=== PATIENT | female | born 1970 | race Caucasian/White ===

== ENCOUNTER 2024-11-18 05:30 | Emergency (ER) | payer BC, OTHER, SELFPAY ==
[2024-11-18 05:32] VITALS: BP 145/92
[2024-11-18 06:03] VITALS: BMI 28.1
[2024-11-18 06:13] LABS: % Basophils 0.7 % (0-2); % Eosinophils 2.4 % (0-6); % Immature Granulocytes 0.3 % (0-0.5); % Lymphocytes 29.4 % (20.5-51.1); % Monocytes 8.5 % (1.7-9.3); % Neutrophils 58.7 % (42.2-75.2); Absolute Eosinophils 0.1 10^3/uL (0-0.7); Absolute Lymphocytes 1.7 10^3/uL (1.2-3.4); Absolute Monocytes 0.5 10^3/uL (0.1-0.6); Absolute Neutrophils 3.4 10^3/uL (1.4-6.5); Hematocrit 37.9 % (37.0-47.0); Hemoglobin 13.1 g/dL (12.0-16.0); Mean Corp Hgb Conc. 34.6 g/dL (33.0-37.0); Mean Corpuscular Hgb 31.3 pg (27.0-31.0); Mean Corpuscular Volume 90.5 fL (81.0-99.0); Mean Platelet Volume 10.8 fL (7.4-10.4); Nucleated Red Blood Cells % 0 %; Platelet Count 238 10^3/uL (130-400); Red Blood Cell Count 4.19 10^6/uL (4.20-5.40); White Blood Cell Count 5.9 10^3/uL (4.8-10.8)
[2024-11-18 06:26] LABS: ALT (SGPT) 11 U/L (0-35); AST (SGOT) 16 U/L (14-36); Albumin 3.9 g/dl (3.5-5.0); Alkaline Phosphatase 53 U/L (38-126); Blood Urea Nitrogen 9 mg/dl (7-17); Calcium 9.3 mg/dl (8.4-10.2); Carbon Dioxide 24 mmol/L (22-30); Chloride 109 mmol/L (98-107); Estimated Creatinine Clearance 123 ml/min; Glucose 96 mg/dl (70-99); Potassium 3.8 mmol/L (3.5-5.1); Sodium 140 mmol/L (135-145); Total Bilirubin 0.4 mg/dl (0.2-1.3); eGFR > 60.00
--- NOTE | 2024-11-18 07:13 | ED.GENMED ---
History of Present Illness
General
Chief Complaint: Dental Problem
Source: patient
Exam Limitations: none
Time Seen by Provider: 11/18/24 06:57
Nursing documentation reviewed up to this point in time: agreed with
History of Present Illness
History of Present Illness:
54-year-old female presents with left lower jaw pain had vertigo recently, saw her PCP referred to see ENT saw her dentist had a dental extraction since then has had some dizziness pain in her jaw despite Motrin and Tylenol no fever she has had
halitosis, trouble sleeping due to pain
Past History
Past History
ED Past Medical History: Other (TMJ dysfunction)
ED Past Surgical History: Appendectomy and Orthopedic (Right knee arthroscopy)
Social History
Tobacco: Non-smoker
Alcohol: Occasional (Rare)
Personal: Single
Living: with family
Employment: Employed
Family History
Family History: Other (Noncontributory)
Review of Systems
Review of Systems
All Other Systems: Not applicable
Constitutional: Denies fever or fatigue
EENT: Reports mouth swelling and other (Dental pain dizziness)
Cardiac: Reports no symptoms
ABD/GI: Reports no symptoms
: Reports no symptoms
Neurological: Reports dizzy
Phy Exam
Physical Exam
Physical Exam:
Physical Exam
General: 54 female looks uncomfortable
Neck: Left lower first molar mild gingiva erythema no palpable abscess no true
Heart: s1/s2 regular rate and rhythm, no murmur. equal radial pulses.
Lungs: no acute respiratory distress. clear bilaterally
Abdomen: Nontender
Neuro: alert and oriented. no focal neurological deficits
Skin: no rash
Psychiatric: well kept. interactive and cooperative
Extremities: no edema.
Sepsis
Sepsis Screening
Sepsis Assessment: Sepsis Ruled Out
Sepsis Screen
Sepsis Screen: Sepsis Ruled Out
Date: 11/18/24
Time: :
Course
Orders/Labs/Results
Orders:
Orders
11/18/24 06:04
Complete Blood Count/With Diff Urgent
Comprehensive Metabolic Panel Urgent
Blood Culture Urgent
HAILEY Source: Blood/Venous
Specimen Description:
11/18/24 07:10
0.9% Sodium Chloride 1000 ml [Nss] 1,000 ml IV BOLUS
HYDROmorphone [Dilaudid] 1 mg IV NOW STA
Ketorolac [Toradol] 30 mg IV NOW STA
Ondansetron Injectable [Zofran] 4 mg IV NOW STA
11/18/24 07:49
Ampicillin/Sulbactam 3 G [Unasyn] 3 gm 0.9% Sodium Chloride 100 ml [Nss] 100 ml IV NOW
Abnormal Lab Results
11/18/24
06:04
RBC 4.19 L 10^6/uL
(4.20-5.40)
MCH 31.3 H pg
(27.0-31.0)
MPV 10.8 H fL
(7.4-10.4)
Chloride 109 H mmol/L
(98-107)
11/18/24 06:04
11/18/24 06:04
Vital Signs
Initial and Last Documented VS:
Initial Vital Signs
Temp Pulse Resp BP Pulse Ox
98.3 F 78 20 145/92 98
11/18/24 05:32 11/18/24 05:32 11/18/24 05:32 11/18/24 05:32 11/18/24 05:32
Last Documented Vital Signs
Temp Pulse Resp BP Pulse Ox
98.3 F 78 20 138/89 99
11/18/24 05:32 11/18/24 05:32 11/18/24 05:32 11/18/24 09:00 11/18/24 09:15
Procedures
Dentalgia
Dental Block: In. Jenise. Block
Bupivacaine 0.5%/Epi Dental cartridge administered?: Yes
Tooth Number: 17
Abcess drained?: No
Pt tolerated procedure well w/ no immediate adverse effects?: Yes
MDM/Problems Addressed
Differential Diagnosis Includes:
Dry socket postop pain, no signs of deep space infection,
MDM/Problems Addressed:
Dental pain dizziness
*Critical Care Note
Total Time (30-74mins, 75-104mins- exclusive of procedures): Not Applicable
Update Note
Update Note:
9:25 AM patient looks improved encouraged to follow-up with her dentist
ED Attending Note
-
Portions of this chart may have been created with voice recognition software.� Occasional wrong word or��sound alike� substitutions may have occurred due to the inherent limitations of voice recognition software.
Discharge Plan
Departure
Patient Disposition: Home (Routine Discharge)
Date of Disposition: 11/18/24
Time of Disposition: :25
Patient with high blood pressure during this ER visit?: No
Condition: Good
Discharge Problem:
Dry tooth socket
Instructions: Dental Pain (DC)
Prescriptions:
New
chlorhexidine gluconate [Paroex Oral Rinse] 0.12 % mouthwash
15 ml mucous membrane BID Qty: 1893 0RF
oxycodone-acetaminophen [Percocet] 5-325 mg tablet
1 tab PO Q4HPRN PRN (Reason: pain) Qty: 14 0RF
ibuprofen 600 mg tablet
600 mg PO Q6H PRN (Reason: Pain) Qty: 20 0RF
penicillin V potassium 250 mg tablet
500 mg PO Q6H 10 Days Qty: 80 0RF
No Action
multivitamin [One Daily] 1 EACH tablet
1 ea PO DAILY
meclizine 25 MG tablet
25 mg PO QIDPRN PRN (Reason: dizziness) Qty: 30 0RF
prednisone 50 MG tablet
50 mg PO DAILY Qty: 4 0RF
Rx Instructions:
Take with food.
Referrals:
Elizabeth Mendoza MD [Family Provider] -
Stand Alone Forms: Return to Work
Activity Restrictions/Additional Instructions:
Call your dentist today to arrange follow-up
Rinse your mouth twice a day with Peridex prescription mouthwash
Antibiotics and pain meds as prescribed
Interventions
Interventions:
*Risk Screen - Suicide Last Done: 11/18/24 05:32
*General Assessment Last Done: 11/18/24 06:06
*Neglect/Abuse Screening Last Done: 11/18/24 05:32
*ED- Fall Risk Assessment Last Done: 11/18/24 06:06
*ED COVID-19 Vaccine History Last Done: 11/18/24 06:06
ED- Cardiac Assessment Last Done: 11/18/24 06:06
ED- Neurological Assessment Last Done: 11/18/24 06:06
ED Swallowing Screen Last Done: 11/18/24 07:30
Discharge Date and Time
Print Language: [place]
[2024-11-18] MEDS: ZOFRAN 4 MG IV (07:34)
[2024-11-18] MEDS: TORADOL 30 MG IV (07:35)
[2024-11-18] MEDS: DILAUDID 1 MG IV (07:38)
[2024-11-18] MEDS: NSS 1000 IV (07:41)
[2024-11-18 07:47] VITALS: BP 119/87
[2024-11-18 08:00] VITALS: BP 132/82
[2024-11-18] MEDS: UNASYN IV (08:27)
[2024-11-18 09:00] VITALS: BP 138/89
[2024-11-18 10:00] VITALS: BP 124/85
[2024-11-18] MEDS: PERCOCET 5/325 1 TABLET PO (10:20)
== END 2024-11-18 09:50 | disposition home or self-care (01) ==
LOC: EMR 05:30
PROVIDERS: EMERGENCY PHYSICIAN Emergency Medicine; FAMILY PHYSICIAN Hospitalist
DX: M27.3 Alveolitis of jaws (principal); K08.89 Other specified disorders of teeth and supporting structures; Z90.49 Acquired absence of other specified parts of digestive tract
CPT/HCPCS: 64400; 96365; 96375; 96361; 99284; 80053; 85025; 87040

== ENCOUNTER → 2025-04-01 17:28 | Outpatient (REF) | payer BC, OTHER, SELFPAY | LOC: WDC 17:28 | PROVIDERS: ATTENDING PHYSICIAN Hospitalist | DX: Z12.31 Encounter for screening mammogram for malignant neoplasm of breast (principal) | CPT/HCPCS: 77063; 77067 ==

== ENCOUNTER → 2025-05-15 10:48 | Outpatient (REF) | payer BC, OTHER, SELFPAY ==
[2025-05-22 02:59] LABS: HPV, High Risk Not Detected; HPV, High Risk Source Cervical
== END ==
LOC: CPAP 10:48
PROVIDERS: ATTENDING PHYSICIAN Advanced Practice Midwife
DX: Z01.419 Encounter for gynecological examination (general) (routine) without abnormal findings (principal); Z11.51 Encounter for screening for human papillomavirus (HPV)
CPT/HCPCS: 87624

== ENCOUNTER → 2025-06-03 06:41 | Outpatient (REF) | payer BC, OTHER, SELFPAY ==
[2025-06-03 08:15] LABS: Hematocrit 42.4 % (37.0-47.0); Hemoglobin 14.1 g/dL (12.0-16.0); Mean Corp Hgb Conc. 33.3 g/dL (33.0-37.0); Mean Corpuscular Volume 91.8 fL (81.0-99.0); Nucleated Red Blood Cells % 0 %; Platelet Count 274 10^3/uL (130-400); Red Cell Dist. Width 13.5 % (11.5-14.5)
[2025-06-03 09:23] LABS: TSH 5.87 uIU/ml (0.47-4.68)
[2025-06-03 09:30] LABS: ALT (SGPT) 12 U/L (0-35); AST (SGOT) 20 U/L (14-36); Albumin 4.5 g/dl (3.5-5.0); Alkaline Phosphatase 59 U/L (38-126); Blood Urea Nitrogen 12 mg/dl (7-17); Calcium 9.3 mg/dl (8.4-10.2); Carbon Dioxide 27 mmol/L (22-30); Chloride 107 mmol/L (98-107); Glucose 87 mg/dl (70-99); HDL Cholesterol 65 mg/dl; LDL Cholesterol, Calculated 172 mg/dl; Potassium 4.4 mmol/L (3.5-5.1); Sodium 140 mmol/L (135-145); Total Protein 7.8 g/dl (6.3-8.2); Very Low Density Lipoprotein 15 mg/dl (0-30); eGFR > 60.00
== END ==
LOC: REG 06:41
PROVIDERS: ATTENDING PHYSICIAN Hospitalist
DX: E78.5 Hyperlipidemia, unspecified (principal); Z00.00 Encounter for general adult medical examination without abnormal findings; R53.83 Other fatigue
CPT/HCPCS: 36415; 80053; 80061; 84443; 85025